=== PATIENT | female | born 1985 | race Caucasian/White ===

== ENCOUNTER 2017-09-16 19:17 | Day surgery (SDC) | payer OTHER ==
[2017-09-16 20:07] VITALS: BMI 34.4
[2017-09-16 21:07] LABS: FFN Internal QC Analyzer PASS (PASS); FFN Internal QC Cassette PASS (PASS); Fetal Fibronectin Negative (Negative)
--- NOTE | 2017-09-16 22:14 | PRG ---
DATE OF SERVICE: 09/16/2017 TIME OF SERVICE: 21:45 PRESENTING COMPLAINT: Brown vaginal discharge and occasional cramping for the day. HISTORY OF PRESENT ILLNESS: Ms. Patterson is a 32-year-old 2, para 1 at 29 weeks gestation who se es Dr. Angeles at [facility]'s [place]. She reports some cramping during the day and she has n oticed some brownish discharge. She denies rupture of membranes. She reports an active fetus. 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 No histor y of labor. No history of STDs. PAST MEDICAL HISTORY: None. PAST SURGICAL HISTORY: . ALLERGIES: CODEINE, TRAMADOL, BACTRIM. MEDICATIONS: vitamins. SOCIAL HISTORY: Denies tobacco, alcohol, or drug use. FAMILY HISTORY: Noncontributory. REVIEW OF SYSTEMS: Noncontributory. PHYSICAL EXAMINATION: GENERAL: White female in no acute distress. VITAL SIGNS: Temperature 99.2, respirations 18, blood pressure 118/72, pulse 85. HEENT: Within normal limits. LUNGS: Clear to auscultation bilaterally. HEART: Regular rhythm. BREASTS: No masses bilaterally. ABDOMEN: Soft, nontender, no rebound or guarding. Fundal height 30 cm. FHTs 140s. PELVIC: Vulva without lesions. VAGINA: fibronectin was collected and sent. There was a small amount of brownish mucus consis tent with old supracervical bleed noted in the cervical os. Bimanual exam of the os revealed it to b e closed, long, and high. EXTREMITIES: Without clubbing, cyanosis, or edema. LABORATORY DATA: fibronectin negative. IMAGING: Ultrasound did not reveal the cervix over 4 cm in length. The placenta was anterior and no t previa. There was no evidence of a retroplacental hematoma or other abnormality noted. IMPRESSION: Old supracervical bleeding with now passes of brown mucus. No evidence of active bleedi ng, no evidence of abruption. PLAN: Reassurance. The patient's blood type O positive, so no need for RhoGAM and patient will keep scheduled followup with Dr. Angeles with ER precautions to represent if she starts having bright red b leeding or labor like contractions.
--- NOTE | 2017-09-16 22:26 | ULT ---
EXAM: LIMITED OB ULTRASOUND 09/16/17 HISTORY: 29 week patient. Supracervical bleeding. COMPARISON: None. TECHNIQUE: Sagittal and transverse imaging of the gravid uterus performed. FINDINGS: Cervix is identified measuring 5.6 cm. Cervix appears to be closed. There is a hypoechoic area in the central portion of the cervix which may represent a small amount of fluid. Single intrauterine gestation with vertex presentation. Anterior placenta. No evidence of previa. heart tones with a rate of 136 beats per minute. Amniotic fluid index is 22.7 cm. SURVEY: The following structures are adequately demonstrated; bladder, three vessel cord, kidneys, sagittal s pine. BIOMETRY: BPD 8.18 cm 32 weeks, 6 days Head circumference 29.44 cm 32 weeks, 4 days Abdominal circumference 29.63 cm 33 weeks, 4 days Femur length 5.96 cm 31 weeks, 0 days Average by sonography is 32 weeks, 4 days. Estimated weight is 2030 grams, plus/minus 300 grams . Estimated weight percentage: 99. IMPRESSION: 1. Single intrauterine gestation with heart tones. 2. Vertex presentation. 3. Cervical length is 5.7 cm. 4. Average age by sonography is 32 weeks, 4 days with estimated weight of 230 grams. 5. Questionable small amount of fluid within the cervix. POS: PPP
== END 2017-09-16 21:55 | disposition home or self-care (01) ==
LOC: L&D/OP 19:17
PROVIDERS: ATTEND Obstetrics & Gynecology
DX: O99.89 Other specified diseases and conditions complicating pregnancy, childbirth and the puerperium (principal); N89.8 Other specified noninflammatory disorders of vagina; R10.9 Unspecified abdominal pain; Z3A.29 29 weeks gestation of pregnancy; Z98.891 History of uterine scar from previous surgery; Z88.5 Allergy status to narcotic agent; Z88.2 Allergy status to sulfonamides; Z79.899 Other long term (current) drug therapy
CPT/HCPCS: 76815; 82731

== ENCOUNTER 2017-11-18 05:28 | Inpatient (IN) | payer OTHER ==
[2017-11-18 06:07] VITALS: BMI 35.6
[2017-11-18] MEDS ORDERED: CEFAZOLIN/Water 2 GM/20 ML SYRINGE SLOW IVP SCH (06:25)
[2017-11-18] MEDS ORDERED: Bicitra 30 ML UDCUP PO SCH (06:25)
[2017-11-18] MEDS ORDERED: Ondansetron HCl/PF 4 MG/2 ML Vial IVP PRN ×5 (06:25→11:26)
[2017-11-18] MEDS ORDERED: Lactated Ringer's 1,000 ML IV SCH ×2 (06:25→10:48)
--- NOTE | 2017-11-18 06:36 | PDOC.LDHP ---
Labor and Delivery H&P Chief complaint: scheduled section HPI: Pt is a @ 38.6 here for RCS w suspected LGA and GHTN. Pt has had BP monitored closely in the office and at home with increase in BP at home to sustained mild range BP on Tue. Pt was counseled for indicated delivery at that time but requested to post pone CS as her was ill w a viral illness. Pt reports ctx/cramping that started late yesterday evening. No LOF, some spotting yesterday. Good FM. BP at home this AM 159/92. Current gestational age (weeks): 38 Due date: 11/26/17 Dating criteria: last menstrual period, first trimester ultrasound Grav: 2 Para: 1 OB History Details: IOL for PIH, CS for failed IOL Current complications: gestational hypertension, other (suspected LGA) Abnormal US findings: No (9.5-10.5 EFW) Current medications: pre-audi vitamins Previous surgical history: low tranverse CS, other (arthroscopic x 2, implanted contact lenses) Allergies/Adverse Reactions: Allergies Allergy/AdvReac Type Severity Reaction Status Date / Time codeine Allergy VOMITING Verified 11/18/17 06:02 promethazine [From Phenergan] Allergy Verified 11/18/17 06:02 Sulfa (Sulfonamide Allergy Verified 11/18/17 06:02 Antibiotics) tramadol Allergy VOMITING Verified 11/18/17 06:02 Social history: none - Physical Exam Vital signs reviewed and normal: yes (mild range) General: resting Heart: RRR Lungs: CTAB Abdomen: gravid Extremeties: no edema FHT: category 1 Empire contractions every: q5 - OB Labs Blood type: O RH: positive Antibody Screen: negative HIV: negative RPR: negative HEPSAg: negative 1 hour GCT: positive GBS: positive Rubella: immune - Assessment L&D Assessment: scheduled repeat section - Plan Plan: admit to L&D, informed consent obtained, anesthesia consult for pain management
[2017-11-18 06:48] LABS: Hemoglobin 11.2 g/dL (12.0-16.0); Mean Corpuscular HGB CONC 32.6 g/dL (32.0-36.0); Mean Corpuscular Hemoglobin 28.3 pg (27.0-31.0); Mean Corpuscular Volume 86.9 fl (81.0-99.0); Mean Platelet Volume 7.4 fL (7.4-10.4); Platelet Count 280 thou/uL (130-400); RBC Distribution Width 13.3 % (11.5-14.5); Red Blood Cell (RBC) Count 3.94 mill/uL (4.20-5.40); White Blood Cell (WBC) Count 13.8 thou/uL (4.8-10.8)
[2017-11-18 07:27] LABS: HBSAg Index 0.15 S/CO (0-0.99); Hep B Surf Ag Non-Reactive S/CO (NonReactive)
[2017-11-18] MEDS ORDERED: PHENYLEPHRINE-NS 100 MCG/ML 10 ML SYRINGE ONE ×2 (07:43→13:36)
[2017-11-18] MEDS ORDERED: Dexamethasone 4 mg/ml Vial ONE (07:43)
[2017-11-18] MEDS ORDERED: Ondansetron HCl/PF 4 MG/2 ML Vial ONE ×2 (07:43→13:36)
[2017-11-18] MEDS ORDERED: Lidocaine 2% PF 5 ML VIAL ONE (07:43)
[2017-11-18] MEDS ORDERED: Ketorolac Tromethamine 30 MG/ML VIAL ONE ×2 (07:43→13:36)
[2017-11-18] MEDS ORDERED: Bupivacaine 0.75% W/DEXTROSE 8.25% 2 ML AMP ONE (07:43)
[2017-11-18] MEDS ORDERED: ePHEDrine/0.9% NaCl/PF SYRINGE 50 mg/10 ml ONE (07:43)
[2017-11-18] MEDS ORDERED: Morphine PF 1 MG/ML SYR ONE (07:43)
[2017-11-18] MEDS ORDERED: Oxytocin 10 UNITS/ML VIAL ONE ×2 (07:44→07:45)
[2017-11-18] MEDS ORDERED: Meperidine HCl/PF 25 MG/ML VIAL SLOW IVP PRN (07:53)
[2017-11-18] MEDS ORDERED: Naloxone HCl 0.4 mg/ml Vial IVP PRN ×2 (07:53)
[2017-11-18] MEDS ORDERED: Naloxone HCl 0.4 mg/ml Vial IV PRN ×4 (07:53→11:26)
[2017-11-18] MEDS ORDERED: Eucerin (Mineral Oil/Petrolatum,White) 30 gm Jar TOP PRN (07:53)
[2017-11-18] MEDS ORDERED: diphenhydrAMINE 50 MG/ML VIAL IVP PRN ×2 (07:53→11:26)
[2017-11-18] MEDS ORDERED: Ketorolac Tromethamine 30 MG/ML VIAL IVP PRN ×2 (07:53→11:26)
[2017-11-18] MEDS ORDERED: HYDROmorphone 2 MG/ML VIAL SLOW IVP PRN (07:53)
[2017-11-18] MEDS ORDERED: Ketorolac Tromethamine 30 MG/ML VIAL IVP SCH (08:00)
[2017-11-18] MEDS ORDERED: Communication Order-Pharmacy FS SCH (08:00)
--- NOTE | 2017-11-18 08:58 | PDOC.OPDEL ---
OB Operative/Delivery Note Delivery Dr/Surgeon: Karthik Assist: Jabier Pre-Delivery Diagnosis: scheduled section (GHTN) Weeks gestation: 38 Anesthesia: spinal - Findings A Sex: male Weight: 8 lb 11 oz - 1 min: 9 - 5 min: 9 - Additional Findings/Plan Placenta delivered: manual removal findings: low transverse hysterotomy without extension, normal uterus, normal tubes, normal ovaries, other (filmy adhesions of bladder to HENRIETTA) Estimated blood loss: 500ml Compilations/Other Findings: none Post delivery plan: routine recovery
[2017-11-18] MEDS ORDERED: NS / Oxytocin 40 units/1000ml 1,000 ML ONE (09:11)
[2017-11-18] MEDS ORDERED: Lanolin Ointment 7 GM TUBE TOP PRN (10:48)
[2017-11-18] MEDS ORDERED: diphenhydrAMINE 25 MG CAP PO PRN (10:48)
[2017-11-18] MEDS ORDERED: Adacel (T-DAP) 0.5 ML VIAL IM ONE (10:48)
[2017-11-18] MEDS ORDERED: Bisacodyl 10 MG SUPP PR PRN (10:48)
[2017-11-18] MEDS ORDERED: NS / Oxytocin 40 units/1000ml 1,000 ML IV SCH (10:48)
[2017-11-18] MEDS ORDERED: NO PO,IM,IV OR SC NARCOTICS FOR 12HR EXCEPT BY ANESTHESIA PO SCH (11:26)
[2017-11-18] MEDS ORDERED: Hydrocerin (Eucerin) Cream 120 gm Jar TOP PRN (11:26)
[2017-11-18] MEDS ORDERED: Lorazepam 2 MG/ML VIAL SLOW IVP SCH (11:45)
[2017-11-18] MEDS ORDERED: Dexamethasone 20 MG/5 ML VIAL ONE (13:36)
--- NOTE | 2017-11-18 14:19 | OP ---
DATE OF PROCEDURE: 11/18/2017 PREOPERATIVE DIAGNOSES: 1. G2, P1-0-0-1 at 38 weeks and 6 days with induced hypertension. 2. Latent labor. 3. Declines trial of labor after section. POSTOPERATIVE DIAGNOSIS: Status post repeat section. SURGEON: Steve Angeles D.O. PRODUCTION OFFICER: Trey Eugene M.D. COMPLICATIONS: None. ANESTHESIA: Spinal. ESTIMATED BLOOD LOSS: 500 mL PROCEDURE PERFORMED: Repeat low transverse section. OPERATIVE FINDINGS: 1. Low transverse hysterotomy without extension. 2. Vigorous male infant, Apgars 9 and 9, weight 8 pounds 11 ounces to nursery. 3. Placenta delivered intact. 4. Filmy adhesions of the bladder to the lower uterine segment. 5. Fundus firm after delivery. 6. Normal appearing tubes and ovaries. PROCEDURE IN DETAIL: Patient was taken back to the OR with IV fluids running. Once she was in the O R, spinal anesthesia was obtained. The patient was then placed in dorsal supine position with a left lateral tilt. SCDs were placed to the lower extremity. Two grams of Ancef were administered in the OR and a Hunter catheter was placed using sterile technique. The patient was then prepped and draped in normal fashion for section. The abdomen was tested and anesthesia was found to be adequ ate. A Pfannenstiel skin incision was made with a scalpel, a skin incision was carried down through subcutaneous tissue to the fascia. Once the fascia was reached, it was incised in the midline and ex tended superolaterally using curved Tejeda scissors. David clamps were placed at the superior border of the fascia, which was sharply and bluntly dissected off the rectus abdominis muscles in both cauda d cephalad direction allowing adequate space for delivery of the infant. The muscles were bluntly en tered. The peritoneum was bluntly entered and stretched laterally to allow adequate space for delive ry. An Armando O retractor was placed into the peritoneal cavity and used for retraction, visualizati on and protection of the wound. Filmy adhesions of the bladder to the lower uterine segment were not ed and these adhesions were taken down off the lower uterine segment with Metzenbaum scissors and fin e dissection technique with buddhism of anatomy. Once this was complete, low transverse hysteroto my was made with the scalpel. The uterus was bluntly entered and stretched superolaterally using the Keene maneuver. Amniotomy was performed with clear fluid noted. The was then delivered verte x through the incision without difficulty. The nose and mouth were suctioned. The cord was doubly c lamped and cut and the was handed off to special care nurses in attendance. Cord blood was co llected. The placenta was then delivered. The uterus was exteriorized, massaged to firm, and cleare d of clot and debris. The uterus was returned to the abdominal cavity. The hysterotomy was then radha sed with a running V-Loc suture of Monocryl suture. After the hysterotomy was closed, some small ser osal areas of bleeding from the lysis of adhesions were addressed with Bovie cauterization. Once hem ostasis of the uterus was noted, the pericolic gutters and hysterotomy were irrigated and suctioned d ry. Hysterotomy and uterus were inspected again with no other areas of bleeding noted. A layer of I nterceed was placed over the hysterotomy and the dissection plane from the lysis of adhesions. Balaji s O retractor was removed from the abdominal cavity. The muscle bellies and fascia were inspected wi th no areas of bleeding noted. The fascia was reapproximated with a running suture of PDS. Subcutan eous tissue was then irrigated and dried. It was inspected and small areas of bleeding were controll ed with Bovie cauterization. Subcutaneous tissue was reapproximated with a series of interrupted nadeen in gut suture. The skin was closed with 4-0 Monocryl and dressed with Dermabond dressing. The uteru s was massaged again and noted to be firm. The patient was cleaned, dried, taken to the recovery clotilde in good condition.
[2017-11-18] MEDS: Ferrous Sulfate 325 MG TAB PO SCH ×2 (17:37→23:07)
[2017-11-18] MEDS: Docusate Calcium (SURFAK) 240 MG CAP PO SCH (17:37)
[2017-11-18] MEDS: Prenatal Vitamin 1 TAB PO SCH (17:37)
[2017-11-18] MEDS: Ibuprofen 800 MG TAB PO SCH ×2 (17:38→23:06)
[2017-11-18] MEDS: Simethicone Chewable 80 MG TAB PO PRN (18:13)
[2017-11-18] MEDS ORDERED: HYDROcodone/Acetaminophen 5/325 mg Tablet PO PRN ×2 (20:00)
[2017-11-18] MEDS ORDERED: Meperidine HCl/PF 25 MG/ML VIAL IM PRN (20:00)
[2017-11-19] MEDS: Ibuprofen 800 MG TAB PO SCH ×3 (05:57→20:46)
[2017-11-19 06:37] LABS: Hemoglobin 9.5 g/dL (12.0-16.0); Mean Corpuscular HGB CONC 33.5 g/dL (32.0-36.0); Mean Corpuscular Hemoglobin 29.3 pg (27.0-31.0); Mean Corpuscular Volume 87.4 fl (81.0-99.0); Platelet Count 252 thou/uL (130-400); RBC Distribution Width 13.3 % (11.5-14.5); Red Blood Cell (RBC) Count 3.25 mill/uL (4.20-5.40); White Blood Cell (WBC) Count 16.6 thou/uL (4.8-10.8)
[2017-11-19] MEDS: Simethicone Chewable 80 MG TAB PO PRN ×2 (08:51→20:47)
[2017-11-19] MEDS: Docusate Calcium (SURFAK) 240 MG CAP PO SCH ×3 (08:51→20:46)
[2017-11-19] MEDS: Ferrous Sulfate 325 MG TAB PO SCH ×2 (08:52→20:46)
[2017-11-19] MEDS: Prenatal Vitamin 1 TAB PO SCH (08:52)
[2017-11-19] MEDS: HYDROcodone/Acetaminophen 5/325 mg Tablet PO PRN ×3 (08:52→17:20)
--- NOTE | 2017-11-19 10:48 | PDOC.PP ---
Post Progress Note Post Day #: 1 Subjective: tired and exhausted, min sleep overnight, nursing, pain controlled PO intake tolerated: yes Flatus: yes Ambulation: yes Vital Signs (12 hours) Temp Pulse Resp BP 11/19/17 08:00 98.7 F 68 16 110/56 L 11/19/17 04:00 98.4 F 78 16 11/19/17 00:00 98.4 F 78 16 Weight Weight 208 lb - Physical Examination General: NAD Abdominal: appropriately TTP Fundus firm & at: below umb Extremities: negative homans (B) Skin: CS incision dry & intact Neurological: no gross focal deficits Psychiatric: A&Ox3, normal affect Result Diagrams: 11/19/17 06:29 Additional Labs: Post Labs Blood Type O POSITIVE 11/18/17 06:30 Hep Bs Antigen Non-Reactive S/CO (NonReactive) 11/18/17 06:30 (1) Delivery Delivered Code(s): O82 - ENCOUNTER FOR DELIVERY WITHOUT INDICATION Status: Acute (2) Gestational hypertension Code(s): O13.9 - GESTATIONAL HTN W/O SIGNIFICANT PROTEINURIA, UNSP TRIMESTER Status: Acute - Assessment/Plan POD1, sp RCS, BP normal range this AM, discussed rest when possible.
[2017-11-19] MEDS ORDERED: Milk Of Magnesia 30 ML UDCUP PO PRN (21:28)
[2017-11-19] MEDS ORDERED: Ondansetron ODT 4 MG TAB PO PRN (21:47)
[2017-11-20] MEDS: Ibuprofen 800 MG TAB PO SCH ×3 (04:47→21:10)
[2017-11-20] MEDS ORDERED: Bisacodyl 5 MG TAB PO SCH (06:15)
--- NOTE | 2017-11-20 06:18 | PDOC.PP ---
Post Progress Note Post Day #: 2 Subjective: States that the norco makes her sleepy. Passing flatus but not as much as she thinks she needs to. . Christina po. No BM yet. PO intake tolerated: yes Flatus: yes Ambulation: yes Vital Signs (12 hours) Temp Pulse Resp 11/20/17 04:00 98.6 F 69 18 11/20/17 00:00 98.6 F 69 18 11/19/17 20:00 98.6 F 69 18 Weight Weight 208 lb - Physical Examination General: NAD Cardiovascular: no m/r/g Respiratory: clear to auscultation bilaterally Abdominal: + bowel sounds, no distention, appropriately TTP Extremities: negative homans (B) Skin: CS incision dry & intact (Sutured closed), no rash Neurological: no gross focal deficits Psychiatric: A&Ox3, normal affect Result Diagrams: 11/19/17 06:29 Additional Labs: Post Labs Blood Type O POSITIVE 11/18/17 06:30 Hep Bs Antigen Non-Reactive S/CO (NonReactive) 11/18/17 06:30 (1) Delivery Delivered Code(s): O82 - ENCOUNTER FOR DELIVERY WITHOUT INDICATION Status: Acute - Assessment/Plan POD 2 today. Slow return of GI function, but she does have flatus. I recommended motrin more for pain than norco to reduce GI suppression. I ordered dulcolax 10mg po X 1 this am..no abdominal distention. Follow today. prob DC home tomorrow if able.
[2017-11-20] MEDS: HYDROcodone/Acetaminophen 5/325 mg Tablet PO PRN ×2 (09:04→13:46)
[2017-11-20] MEDS: Ferrous Sulfate 325 MG TAB PO SCH ×2 (09:05→21:43)
[2017-11-20] MEDS: Docusate Calcium (SURFAK) 240 MG CAP PO SCH ×2 (09:05→19:51)
[2017-11-20] MEDS: Prenatal Vitamin 1 TAB PO SCH (09:06)
[2017-11-20] MEDS: Simethicone Chewable 80 MG TAB PO PRN ×2 (15:13→21:10)
[2017-11-21] MEDS: Ibuprofen 800 MG TAB PO SCH ×2 (04:59→14:20)
[2017-11-21 08:03] VITALS: BP 104/57; TEMP 98.8
[2017-11-21] MEDS: Prenatal Vitamin 1 TAB PO SCH (09:39)
[2017-11-21] MEDS: Docusate Calcium (SURFAK) 240 MG CAP PO SCH (09:39)
[2017-11-21] MEDS: Ferrous Sulfate 325 MG TAB PO SCH (09:40)
[2017-11-21] MEDS: Simethicone Chewable 80 MG TAB PO PRN (14:19)
--- NOTE | 2017-11-21 17:59 | DIS ---
DATE OF ADMISSION: 11/18/2017 DATE OF DISCHARGE: 11/21/2017 PRIMARY OB: Dr. Angeles. ADMITTING DIAGNOSES: Scheduled repeat at term and gestational hypertension, latent labor. DISCHARGE DIAGNOSES: Scheduled repeat at term and gestational hypertension. PROCEDURE: Repeat lower transverse section. CONSULTATIONS: None. HOSPITAL COURSE: The patient is a 32-year-old G2, now P2 female who presented for a scheduled repeat at 38 weeks and 6 days. For complete details, please refer to the operative note. The lopez rgery was uncomplicated. The patient presented with latent labor and at that time had a . Estimated blood loss was 500 mL. After surgery, the patient was sent to recovery and then the postpa rtum floor for continued care. Her postoperative course has been uncomplicated. Post-delivery hemog lobin is 9.5, hematocrit 28.4, platelets of 252,000. Today, she reports she is tolerating p.o., void ing on her own, having good pain control, decreased lochia. PHYSICAL EXAMINATION: VITAL SIGNS: This morning, blood pressure is 130/72, temperature 98.0, pulse of 73, respiratory rate of 16. GENERAL: The patient appears to be in no acute distress. She is alert and oriented, cooperative and pleasant to interact with. HEENT: Head is normocephalic, atraumatic. ABDOMEN: Soft, appropriately tender and firm with a firm fundus. Incision is clean, dry, and intact . EXTREMITIES: Nontender with minimal edema and symmetrical. The patient is being discharged to home. She has hydrocodone 5 #30 and ibuprofen at pharmacy waiting for her. DISCHARGE INSTRUCTIONS: She has instructions to follow up with Dr. Angeles in 2 weeks for incision gale ck. She also has been given instructions to limit her lifting to 15 pounds for the next 4-6 weeks, a nd to seek medical attention if she experiences fever, increasing pain or bleeding, redness or draina ge from her incision site.
== END 2017-11-21 15:15 | disposition home or self-care (01) | DRG 766 ==
LOC: L&D 05:28 → 3SW 11:01
PROVIDERS: ADMIT Obstetrics & Gynecology; ATTEND Obstetrics & Gynecology
PROC: 10D00Z1 Extraction of Products of Conception, Low, Open Approach (ICD-10-PCS; principal; 2017-11-18)
DX: O13.4 Gestational [pregnancy-induced] hypertension without significant proteinuria, complicating childbirth (principal); O34.211 Maternal care for low transverse scar from previous cesarean delivery; Z3A.38 38 weeks gestation of pregnancy; Z37.0 Single live birth; O36.63X0 Maternal care for excessive fetal growth, third trimester, not applicable or unspecified
CPT/HCPCS: 36415; 51702; 85027; 86850; 86900; 86901; 87340; J1100; J1200; J1885; J2001; J2274; J2405; J2590; J3490; Q0162

== ENCOUNTER 2019-09-13 05:54 | Day surgery (SDC) | payer BC ==
[2019-09-13] MEDS ORDERED: Fentanyl 100 MCG/2 ML VIAL ONE ×3 (06:30→09:05)
[2019-09-13] MEDS ORDERED: Bupivacaine PF 0.5% 30 ML VIAL ONE ×2 (06:52→07:35)
[2019-09-13] MEDS ORDERED: Lidocaine 1% w/Epinephrine 1:100K 20 ML VIAL ONE (06:52)
[2019-09-13 06:54] LABS: #Eosinphils 0.2 thou/uL (0.0-0.7); #Lymphocytes 2.2 thou/uL (1.20-3.40); #Monocytes 0.5 thou/uL (0.11-0.59); #Neutrophils 5.4 thou/uL (1.40-6.50); %Basophils 0.4 % (0.0-1.0); %Eosinophils 2.3 % (0.0-10.0); %Lymphocytes 26.3 % (21.0-51.0); %Monocytes 5.5 % (0.0-10.0); %Neutrophils 65.5 % (42.0-75.0); Hemoglobin 13.2 g/dL (12.0-16.0); Mean Corpuscular HGB CONC 34.4 g/dL (32.0-36.0); Mean Corpuscular Hemoglobin 31.3 pg (27.0-31.0); Mean Corpuscular Volume 91.1 fL (78.0-98.0); Mean Platelet Volume 8.3 fL (7.4-10.4); Platelet Count 289 thou/uL (130-400); RBC Distribution Width 11.7 % (11.5-14.5); Red Blood Cell (RBC) Count 4.21 mill/uL (4.20-5.40); White Blood Cell (WBC) Count 8.2 thou/uL (4.8-10.8)
[2019-09-13] MEDS ORDERED: Scopolamine 1.5 mg/72 hour Patch ONE (07:06)
[2019-09-13] MEDS ORDERED: Midazolam HCl 2 mg/2 ml Vial ONE ×2 (07:10→07:12)
[2019-09-13] MEDS ORDERED: Famotidine/PF 20 mg/2ml Vial ONE (07:12)
[2019-09-13 07:15] LABS: ALT (SGPT) 13 U/L (8-55); AST (SGOT) 18 U/L (5-34); Albumin 4.5 g/dL (3.5-5.0); Alkaline Phosphatase 65 U/L (40-110); Anion Gap 14 mmol/L (10-20); BUN (Urea Nitrogen) 13 mg/dL (7.0-18.7); Bilirubin, Total 0.5 mg/dL (0.2-1.2); Calc. Creatinine Clearance 0 mL/min (70-130); Calcium 9.3 mg/dL (7.8-10.44); Carbon Dioxide 23 mmol/L (22-29); Chloride 106 mmol/L (98-107); Estimated GFR-MDRD 83; Globulin 2.6 g/dL (2.4-3.5); Glucose 93 mg/dL (70-105); Potassium 4.6 mmol/L (3.5-5.1); Protein, Total 7.1 g/dL (6.0-8.3); Sodium 138 mmol/L (136-145)
[2019-09-13] MEDS ORDERED: SUGAMMADEX SODIUM 200 MG/2 ML VIAL ONE (08:08)
--- NOTE | 2019-09-13 08:18 | OP ---
DATE OF PROCEDURE: 09/13/2019 PREOPERATIVE DIAGNOSIS: Chronic biliary dyskinesia. POSTOPERATIVE DIAGNOSIS: Chronic biliary dyskinesia. PROCEDURE PERFORMED: Laparoscopic cholecystectomy. ANESTHESIA: General. ESTIMATED BLOOD LOSS: Minimal. COMPLICATIONS: None. SPECIMEN: Gallbladder. FINDINGS: Chronic cholecystitis. PROCEDURE IN DETAIL: The patient was taken to the operating room and laid supine on the operating room table. After general anesthetic was obtained, the abdomen was prepped and draped in a sterile fashion. A curved incision was made below the umbilicus. Cautery was used to dissect down to the umbilical fascia. Umbilical fascia was incised and held up using a David. The abdominal cavity was entered using a Sulma clamp. Holding stitch of Vicryl was placed on each side of the fascia. Benedict trocar was placed. High-flow pneumoperitoneum was obtained. An upper midline 5 mm port and 2 right upper quadrant 5 mm ports were placed under direct camera visualization. The gallbladder was retracted from the gallbladder fossa. The peritoneum of the gallbladder was opened anteriorly and posteriorly. The critical view triangle was seen showing only the cystic duct and cystic artery branching from medial to lateral. There were no other branching structures. Two clips were placed proximally on the cystic duct and one laterally. It was cut using laparoscopic scissors. The cystic artery was taken in the same way. Electrocautery was then used to dissect the gallbladder out of the gallbladder fossa. The gallbladder was placed in an Endo catch bag and brought out through the Benedict. There was no bleeding or bile in the liver bed. The cystic duct stump and cystic artery stump were intact, without evidence of extravasation or bleeding. All port sites were infiltrated using local anesthesia. All ports were removed under camera visualization. Pneumoperitoneum was let down. The Vicryl was used to close the fascial defect below the umbilicus. All incisions were irrigated and closed using 4-0 Monocryl and Dermabond. The patient was en route to Recovery in stable condition. All instrument counts, needle counts and lap counts were correct. Job ID: [id number]
[2019-09-13] MEDS ORDERED: Naloxone HCl 0.4 mg/ml Vial ONE (08:21)
[2019-09-13] MEDS ORDERED: Meperidine HCl/PF 25 MG/ML VIAL ONE (08:41)
[2019-09-13] MEDS ORDERED: Promethazine HCl 25 MG/ML VIAL ONE (08:41)
[2019-09-13] MEDS ORDERED: Dexamethasone 20 MG/5 ML VIAL ONE (10:04)
[2019-09-13] MEDS ORDERED: Succinylcholine Chloride 20 MG/ML 10 ml SYRINGE FS ONE (10:04)
[2019-09-13] MEDS ORDERED: Lidocaine 1% PF 5 ML VIAL ONE (10:04)
[2019-09-13] MEDS ORDERED: Rocuronium Bromide 10 MG/ML (10ML VIAL) ONE (10:04)
[2019-09-13] MEDS ORDERED: Ondansetron PF 4 MG/2 ML Vial ONE (10:04)
[2019-09-13] MEDS ORDERED: PROPOFOL 200 MG/20 ML VIAL ONE (10:04)
== END 2019-09-13 11:41 | disposition home or self-care (01) ==
LOC: SDC 05:54
PROVIDERS: ATTEND Surgery
PROC: 0FT44ZZ Resection of Gallbladder, Percutaneous Endoscopic Approach (ICD-10-PCS; principal; 2019-09-13)
DX: K81.1 Chronic cholecystitis (principal); K82.8 Other specified diseases of gallbladder; E66.9 Obesity, unspecified; Z68.27 Body mass index [BMI] 27.0-27.9, adult; Z88.2 Allergy status to sulfonamides; Z88.5 Allergy status to narcotic agent
CPT/HCPCS: 36415; 80053; 85025; 88304; J0690; J1100; J2001; J2175; J2250; J2310; J2405; J2550; J2704; J3010; S0020; S0028

== ENCOUNTER 2020-08-19 13:06 | Outpatient (CLI) | payer BC ==
--- NOTE | 2020-08-19 14:00 | RAD ---
LUMBAR SPINE SERIES FOUR VIEWS INCLUDING FLEXION AND EXTENSION: 08/19/20 HISTORY: Back pain. FINDINGS/IMPRESSION: Vertebral bodies are normal in height. Degenerative osteophytes at L3-4 and L4-5 are seen without sig nificant disc narrowing. No abnormal motion in flexion or extension. Pedicles intact. There is some m ild arthritic changes of the spine. POS: OFF
--- NOTE | 2020-08-20 07:07 | MRI ---
MR the lumbar spine without contrast: 08/19/2020 History: Low back pain with stiffness and tightness, history of arthritis, stenosis COMPARISON: 06/04/2016 TECHNIQUE: Multiplanar multisequence MR images were obtained of lumbar spine without IV contrast FINDINGS: On the basis of 5 lumbar type vertebral bodies, conus medullaris terminates at theL1 level. Sagittal STIR imaging demonstrates no focal area of osseous marrow edema. There is a partially imaged T2 hyperintense structure within the right hemipelvis, measuring at least 2.7 cm, likely on the basis of right ovarian cyst. This could be better assessed via follow-up pelvic ultrasound. T12-L1:Mild bilateral facet hypertrophy with no central canal or neural foraminal stenosis. Intervert ebral disc height and signal intensity is within normal limits. L1-2:Mild bilateral facet hypertrophy. Normal intervertebral disc height and signal intensity. No joe tral canal or neural foraminal stenosis. L2-3:Unremarkable L3-4:Unremarkable L4-5:Mild bilateral facet hypertrophy. Intervertebral disc height and signal intensity within normal limits with no significant central canal or neural foraminal stenosis. L5-S1:Mild bilateral facet hypertrophy. Intervertebral disc height and signal intensity within normal limits with no significant central canal or neural foraminal stenosis. Image retroperitoneal structures demonstrateno acute findings.. IMPRESSION: No significant central canal or neural foraminal stenosis within the lumbar spine. Probable 2.7 cm incompletely imaged cystic lesion within the right ovary. Pelvic ultrasound suggested for full assessment as clinically warranted.
== END 2020-08-19 13:07 | disposition home or self-care (01) ==
LOC: BICMRI 13:06
PROVIDERS: ATTEND Anesthesiology Pain Medicine
DX: M48.062 Spinal stenosis, lumbar region with neurogenic claudication (principal); M47.816 Spondylosis without myelopathy or radiculopathy, lumbar region
CPT/HCPCS: 72110; 72148

== ENCOUNTER 2021-02-11 12:37 | Outpatient (CLI) | payer BC | END 2021-02-11 12:38 | disposition home or self-care (01) | LOC: BICMRI 12:37 → SCSMRI 12:38 | PROVIDERS: ATTEND Nurse Practitioner Family | DX: M50.121 Cervical disc disorder at C4-C5 level with radiculopathy (principal) | CPT/HCPCS: 72141 ==

== ENCOUNTER 2021-09-01 12:22 | Outpatient (CLI) | payer BC | END 2021-09-01 12:23 | disposition home or self-care (01) | LOC: SCSRAD 12:22 | PROVIDERS: ATTEND Internal Medicine Rheumatology | DX: M46.1 Sacroiliitis, not elsewhere classified (principal) | CPT/HCPCS: 72202 ==

== ENCOUNTER 2021-12-15 07:27 | Day surgery (SDC) | payer BC ==
[2021-12-10 13:14] VITALS: BMI 25.7
== END 2021-12-15 12:15 | disposition home or self-care (01) ==
LOC: SDC 07:27
PROVIDERS: ATTEND Internal Medicine Gastroenterology
DX: K92.1 Melena (principal); R10.9 Unspecified abdominal pain; R19.7 Diarrhea, unspecified; K31.7 Polyp of stomach and duodenum; K29.90 Gastroduodenitis, unspecified, without bleeding; K20.90 Esophagitis, unspecified without bleeding; Z88.2 Allergy status to sulfonamides; Z88.5 Allergy status to narcotic agent
CPT/HCPCS: 88305

== ENCOUNTER 2021-12-21 07:36 | Outpatient (CLI) | payer BC ==
[2021-12-21] MEDS ORDERED: Iopamidol 370 76% 100 ML VIAL ONE (13:50)
== END 2021-12-21 07:37 | disposition home or self-care (01) ==
LOC: CT 07:36
PROVIDERS: ATTEND Internal Medicine Gastroenterology
DX: R10.9 Unspecified abdominal pain (principal)
CPT/HCPCS: 74170; Q9967

== ENCOUNTER 2023-09-16 08:20 | Outpatient (CLI) | payer BC | END 2023-09-16 08:21 | disposition home or self-care (01) | LOC: SCSRAD 08:20 | PROVIDERS: ATTEND Allergy & Immunology | DX: M45.8 Ankylosing spondylitis sacral and sacrococcygeal region (principal) | CPT/HCPCS: 72202 ==

== ENCOUNTER 2025-05-31 08:17 | Outpatient (CLI) | payer BC | END 2025-05-31 08:18 | disposition home or self-care (01) | LOC: SCSRAD 08:17 | PROVIDERS: ATTEND Allergy & Immunology | DX: M45.9 Ankylosing spondylitis of unspecified sites in spine (principal) ==